=== PATIENT | male | born 1945 | race Caucasian/White ===

== ENCOUNTER 2023-03-30 11:14 | Outpatient (CLI) | payer MEDICARE | END 2023-03-30 11:15 | disposition home or self-care (01) | LOC: BICMRI 11:14 | PROVIDERS: ATTEND Neurological Surgery | DX: M48.062 Spinal stenosis, lumbar region with neurogenic claudication (principal); M51.36 Other intervertebral disc degeneration, lumbar region; M51.37 Other intervertebral disc degeneration, lumbosacral region; M47.816 Spondylosis without myelopathy or radiculopathy, lumbar region; M47.817 Spondylosis without myelopathy or radiculopathy, lumbosacral region; M48.07 Spinal stenosis, lumbosacral region | CPT/HCPCS: 72148 ==